=== PATIENT | female | born 1985 | race Caucasian/White ===

== ENCOUNTER → 2018-06-18 | Outpatient (CLI) | payer OTHER ==
--- NOTE | 2018-06-18 15:07 | RAD ---
Examination: CT ABDOMEN PELVIS WO CONTRAST History: Hematuria, bilateral flank pain for four days, nephrolithiasis, left CVA tenderness Comparison/Correlation: None Findings: Axial images of the abdomen and pelvis were obtained without contrast. Sagittal and coronal reformatted images were provided. Visualized lung bases are clear. Unenhanced liver, spleen, pancreas, and adrenal glands are normal. Gallbladder fossa is unremarkable. Punctate right renal upper pole calyceal calculus is present. Left renal interpolar calyceal punctate calculus is also present. No radiopaque collecting system obstruction. No extraluminal gas. No inflammatory changes. Left adnexal follicle is physiologic in appearance. Small right adnexal follicles also suggested and physiologic in appearance. No inflammatory changes about the cecum. Uterus is unremarkable. Bony structures are unremarkable. Impression: Nonobstructive renal calculi. No collecting and system obstruction. Bilateral adnexal follicles are physiologic in appearance. PQRS Compliance Statement: One or more of the following individualized dose reduction techniques were utilized for this examination: 1. Automated exposure control 2. Adjustment of the mA and/or kV according to patient size 3. Use of iterative reconstruction technique Electronically signed by: Felice Yang MD (06/18/2018 3:04 PM) [facility]
== END | disposition home or self-care (01) ==
LOC: CT 14:35
PROVIDERS: ATTEND Family Medicine
DX: N20.0 Calculus of kidney (principal)
CPT/HCPCS: 74176